=== PATIENT | male | born 1955 | race African-American/Black ===

== ENCOUNTER 2016-07-27 17:33 | Emergency (ER) | payer MEDICARE, MEDICAID ==
[~2016-07-27] VITALS: Ht 180.3 cm; Wt 91.0 kg
[~2016-07-27 17:33] MED LIST: AMLO10TA80 PO; ASPI-1035 PO; CARV6.2548 PO; DOCU-150 PO; GABA-531 PO; LOSA25TA12 PO; MEGE400O21 PO; NEPVIT PO; PIOG15TA23 PO; RAMI10CA19 PO; SEVE800T8 PO; SIMV20TA6 PO
[2016-07-27] MEDS ORDERED: HYDROCODONE/ACETAMINOPHEN 5/325MG TABLET PO ONE (18:30)
[2016-07-27 19:47] LABS: BASOPHILS % 3.1 % (0.0-2.0); DIFFERENTIAL COMMENT 0; EOSINOPHILS % 7.2 % (0.0-5.0); HEMATOCRIT. 32.5 % (42.0-52.0); HEMOGLOBIN. 10.4 g/dL (14.0-18.0); LYMPHOCYTES % 12.9 % (20.0-50.0); MEAN CORPUSCULAR HEMOGLOBIN 25.1 pg (28.0-32.0); MEAN CORPUSCULAR HGB CONC 32.1 g/dL (31.0-37.0); MEAN CORPUSCULAR VOLUME 78.4 fL (80.0-94.0); MEAN PLATELET VOLUME 7.5 fl (7.4-10.4); MONOCYTES % 10.6 % (2.0-8.0); NEUTROPHILS % 66.2 % (40.0-76.0); PLATELET 244 x1000/uL (130-400); RED BLOOD CELL COUNT 4.14 mill/uL (4.7-6.1); RED CELL DISTRIBUTION WIDTH 17.1 % (11.6-14.6); WHITE BLOOD COUNT 6.1 x1000/uL (4.5-11.0)
[2016-07-27 19:51] LABS: CHLORIDE 93 mEq/L (98-107); INDEX HEMOLYSI 1 (1-3); INDEX ICTERIC 1 (1-4); INDEX LIPEMIC 1 (1-3)
[2016-07-27 19:57] LABS: ALBUMIN 2.6 g/dL (3.4-5.0); ANION GAP 14; CALCIUM 8.4 mg/dL (8.5-10.1); CARBON DIOXIDE 31 mEq/L (21-32); UREA NITROGEN BLOOD 17 mg/dL (7-21)
[2016-07-27 19:58] LABS: ALANINE AMINOTRANSFERASE 13 IU/L (13-61)
[2016-07-27 20:00] LABS: eGFR 18 mL/min (>60)
[2016-07-27] MEDS ORDERED: MORPHINE SULFATE 10 MG/ML CPJ IM ONE (21:15)
[2016-07-28 17:57] VITALS: BP 157/88
== END 2016-07-28 19:04 | disposition home or self-care (01) ==
LOC: ER 17:34
DX: S22.32XA Fracture of one rib, left side, initial encounter for closed fracture (principal); Z79.899 Other long term (current) drug therapy; Z79.82 Long term (current) use of aspirin; E03.9 Hypothyroidism, unspecified; I12.0 Hypertensive chronic kidney disease with stage 5 chronic kidney disease or end stage renal disease; E11.22 Type 2 diabetes mellitus with diabetic chronic kidney disease; N18.6 End stage renal disease
CPT/HCPCS: 36415; 71010; 71250; 74176; 80053; 85025; 87040; 96372; 99285; J2270

== ENCOUNTER 2016-08-16 11:26 | Emergency (ER) | payer MEDICARE, MEDICAID ==
[~2016-08-16] VITALS: Ht 185.4 cm; Wt 76.0 kg
[2016-08-16] MEDS ORDERED: TRAMADOL 50MG TABLET PO ONE (12:30)
[2016-08-16 12:53] VITALS: BP 139/52
== END 2016-08-16 14:09 | disposition home or self-care (01) ==
LOC: ER 11:37
DX: S63.619A Unspecified sprain of unspecified finger, initial encounter (principal); N18.6 End stage renal disease; I12.0 Hypertensive chronic kidney disease with stage 5 chronic kidney disease or end stage renal disease; E11.9 Type 2 diabetes mellitus without complications; E03.9 Hypothyroidism, unspecified; Z99.2 Dependence on renal dialysis; Z79.82 Long term (current) use of aspirin; Z95.5 Presence of coronary angioplasty implant and graft; Z96.649 Presence of unspecified artificial hip joint
CPT/HCPCS: 29130; 73140; 82962; 99284

== ENCOUNTER 2016-10-22 20:40 | Observation (INO) | payer MEDICARE, MEDICAID ==
[~2016-10-22] VITALS: Ht 182.9 cm; Wt 76.7 kg
[~2016-10-22 20:40] MED LIST changes: -ASPI-1035 PO; +ASPI-1158 PO
[2016-10-22] MEDS ORDERED: SODIUM CHLORIDE 0.9% 1000ML BAG (SEPSIS BOLUS) IV ONE (21:15)
[2016-10-22 21:40] LABS: BASOPHILS % 0.9 % (0.0-2.0); EOSINOPHILS % 7.8 % (0.0-5.0); HEMOGLOBIN. 12.3 g/dL (14.0-18.0); LYMPHOCYTES % 12.4 % (20.0-50.0); MEAN CORPUSCULAR VOLUME 78.6 fL (80.0-94.0); MEAN PLATELET VOLUME 7.8 fl (7.4-10.4); MONOCYTES % 8.9 % (2.0-8.0); PLATELET 218 x1000/uL (130-400); RED BLOOD CELL COUNT 4.71 mill/uL (4.7-6.1); RED CELL DISTRIBUTION WIDTH 19.1 % (11.6-14.6)
[2016-10-22 21:45] LABS: INR 1.4
[2016-10-22 21:52] LABS: CARBON DIOXIDE 33 mEq/L (21-32); CHLORIDE 95 mEq/L (98-107)
[2016-10-22] MEDS ORDERED: VANCOMYCIN 1 G PREMIX 200 ML IV SCH (22:45)
[2016-10-22] MEDS ORDERED: PIPERACILLIN SODIUM/TAZOBACTAM 4.5 G in DEXT 5% WATER 100 ML IV SCH (22:45)
[2016-10-22] MEDS ORDERED: MORPHINE SULFATE 4 MG/ML CPJ (NOT FOR IM USE) IV ONE (23:00)
[2016-10-23] MEDS ORDERED: CLONIDINE 0.1MG TABLET PO SCH (07:15)
[2016-10-23 08:15] VITALS: BP 179/89
[2016-10-23] MEDS ORDERED: CLONIDINE 0.1MG TABLET PO PRN (09:15)
[2016-10-23] MEDS ORDERED: DEXTROSE 50% WATER 50ML SYRINGE IV PRN (09:15)
[2016-10-23] MEDS: MEGESTROL ACETATE 40MG TABLET PO SCH (11:15)
[2016-10-23] MEDS ORDERED: RAMIPRIL PO SCH (11:15)
[2016-10-23] MEDS ORDERED: PIOGLITAZONE 15MG TABLET PO SCH (11:15)
[2016-10-23 12:00] VITALS: BP 173/87
[2016-10-23] MEDS: LOSARTAN POTASSIUM 25 MG TABLET PO SCH (12:22)
[2016-10-23] MEDS: FOLIC ACID/VITAMIN B COMP W-C TABLET PO SCH (12:22)
[2016-10-23] MEDS: CARVEDILOL 6.25 MG TABLET PO SCH ×2 (12:22→20:22)
[2016-10-23] MEDS: AMLODIPINE 10MG TABLET PO SCH (12:22)
[2016-10-23] MEDS: DOCUSATE SODIUM 100MG CAPSULE PO SCH (12:22)
[2016-10-23] MEDS: ASPIRIN 81MG EC TABLET PO SCH (12:22)
[2016-10-23] MEDS: SEVELAMER CARBONATE 800 MG TABLET PO SCH ×2 (12:25→18:06)
[2016-10-23] MEDS: BLOOD SUGAR DIAGNOSTIC STRIP TEST SCH ×3 (12:40→20:18)
[2016-10-23] MEDS: INSULIN LISPRO 100 UNITS/ML SUBCUT SCH ×3 (13:10→20:18)
[2016-10-23 16:00] VITALS: BP 178/96
[2016-10-23] MEDS ORDERED: GABAPENTIN 300MG CAPSULE PO SCH (17:00)
[2016-10-23] MEDS: TRAMADOL 50MG TABLET PO PRN (18:05)
[2016-10-23 20:00] VITALS: BP 163/88
[2016-10-23] MEDS: ATORVASTATIN CALCIUM 10MG TABLET PO SCH (20:22)
[2016-10-23] MEDS: GABAPENTIN 300MG CAPSULE PO SCH (20:22)
[2016-10-24] VITALS (7 sets, daily range): BP systolic 135–163; BP diastolic 73–92
[2016-10-24 06:44] LABS: BASOPHILS % 2.5 % (0.0-2.0); EOSINOPHILS % 13.7 % (0.0-5.0); HEMATOCRIT. 30.9 % (42.0-52.0); LYMPHOCYTES % 25.3 % (20.0-50.0); MEAN CORPUSCULAR HEMOGLOBIN 25.9 pg (28.0-32.0); MEAN CORPUSCULAR VOLUME 80.1 fL (80.0-94.0); MEAN PLATELET VOLUME 7.9 fl (7.4-10.4); MONOCYTES % 12.3 % (2.0-8.0); NEUTROPHILS % 46.2 % (40.0-76.0); PLATELET 198 x1000/uL (130-400); RED BLOOD CELL COUNT 3.86 mill/uL (4.7-6.1); RED CELL DISTRIBUTION WIDTH 18.6 % (11.6-14.6)
[2016-10-24] MEDS: BLOOD SUGAR DIAGNOSTIC STRIP TEST SCH ×4 (06:44→20:47)
[2016-10-24] MEDS: SEVELAMER CARBONATE 800 MG TABLET PO SCH ×3 (08:10→16:59)
[2016-10-24] MEDS: INSULIN LISPRO 100 UNITS/ML SUBCUT SCH ×4 (08:10→20:46)
[2016-10-24] MEDS: TRAMADOL 50MG TABLET PO PRN (08:17)
[2016-10-24] MEDS: MEGESTROL ACETATE 40MG TABLET PO SCH (09:00)
[2016-10-24] MEDS ORDERED: HEPARIN SODIUM 1,000 UNIT/1ML VIAL IV NR (09:30)
[2016-10-24] MEDS: CARVEDILOL 6.25 MG TABLET PO SCH ×2 (11:52→20:43)
[2016-10-24] MEDS: AMLODIPINE 10MG TABLET PO SCH (11:52)
[2016-10-24] MEDS: LOSARTAN POTASSIUM 25 MG TABLET PO SCH (11:52)
[2016-10-24] MEDS: FOLIC ACID/VITAMIN B COMP W-C TABLET PO SCH (11:53)
[2016-10-24] MEDS: ASPIRIN 81MG EC TABLET PO SCH (11:53)
[2016-10-24] MEDS: DOCUSATE SODIUM 100MG CAPSULE PO SCH (11:53)
[2016-10-24] MEDS: ATORVASTATIN CALCIUM 10MG TABLET PO SCH (20:42)
[2016-10-24] MEDS: GABAPENTIN 300MG CAPSULE PO SCH (20:42)
== END 2016-10-24 21:25 | disposition home health service (06) ==
LOC: ER 21:05 → INTOOBSV 23:40 → 7WST 23:40 → ENRESERV 10-23 06:43
PROVIDERS: ADMIT Internal Medicine; ATTEND Internal Medicine
DX: E11.649 Type 2 diabetes mellitus with hypoglycemia without coma (principal); R65.10 Systemic inflammatory response syndrome (SIRS) of non-infectious origin without acute organ dysfunction; I13.2 Hypertensive heart and chronic kidney disease with heart failure and with stage 5 chronic kidney disease, or end stage renal disease; E11.22 Type 2 diabetes mellitus with diabetic chronic kidney disease; N18.6 End stage renal disease; R53.1 Weakness; G45.8 Other transient cerebral ischemic attacks and related syndromes; G93.40 Encephalopathy, unspecified; I27.2 Other secondary pulmonary hypertension; I50.9 Heart failure, unspecified; Z82.49 Family history of ischemic heart disease and other diseases of the circulatory system; Z83.3 Family history of diabetes mellitus; Z91.19 Patient's noncompliance with other medical treatment and regimen; Z96.649 Presence of unspecified artificial hip joint; Z99.2 Dependence on renal dialysis
CPT/HCPCS: 36415; 71010; 80048; 80053; 82962; 83605; 83735; 84100; 84443; 85025; 85610; 87040; 93005; 96361; 96365; 96367; 96375; 99291; A6261; G0378; J1644; J2270; J2543; J3370; J7030; 96366; J7060

== ENCOUNTER 2016-11-08 13:19 | Emergency (ER) | payer MEDICARE, MEDICAID ==
[~2016-11-08] VITALS: Ht 172.7 cm; Wt 68.0 kg
[2016-11-08] MEDS ORDERED: BACITRACIN ZINC 15GM TUBE TOP ONE (15:00)
[2016-11-08] MEDS ORDERED: OXYCODONE HCL/ACETAMINOPHEN 5/325MG TABLET PO ONE (15:00)
[2016-11-08 18:57] VITALS: BP 165/83
== END 2016-11-08 19:34 | disposition home or self-care (01) ==
LOC: ER 14:33
DX: S30.812A Abrasion of penis, initial encounter (principal); E11.9 Type 2 diabetes mellitus without complications; I12.0 Hypertensive chronic kidney disease with stage 5 chronic kidney disease or end stage renal disease; N18.6 End stage renal disease; X58.XXXA Exposure to other specified factors, initial encounter; Y93.89 Activity, other specified; Y92.89 Other specified places as the place of occurrence of the external cause; Y99.8 Other external cause status; Z99.2 Dependence on renal dialysis; Z96.649 Presence of unspecified artificial hip joint; Z79.82 Long term (current) use of aspirin
CPT/HCPCS: 99283

== ENCOUNTER 2016-12-31 14:04 | Inpatient (IN) | payer MEDICARE, MEDICAID ==
[~2016-12-31] VITALS: Ht 170.2 cm; Wt 64.9 kg
[~2016-12-31 14:04] MED LIST changes: -MEGE400O21 PO; +MEGE400O23 PO
[2016-12-31] MEDS ORDERED: ACETAMINOPHEN 325MG TABLET PO ONE (15:00)
[2016-12-31 16:59] LABS: HEMATOCRIT. 34.2 % (42.0-52.0); HEMOGLOBIN. 11.1 g/dL (14.0-18.0); MEAN CORPUSCULAR VOLUME 77.4 fL (80.0-94.0); MEAN PLATELET VOLUME 8.5 fl (7.4-10.4); PLATELET 172 x1000/uL (130-400); RED BLOOD CELL COUNT 4.42 mill/uL (4.7-6.1); RED CELL DISTRIBUTION WIDTH 19.4 % (11.6-14.6)
[2016-12-31 17:00] LABS: CARBON DIOXIDE 30 mEq/L (21-32); CHLORIDE 98 mEq/L (98-107); INR 1.4; PROTHROMBIN TIME 14.3 sec (9.4-11.6)
[2016-12-31 17:12] LABS: TROPONIN I 0.59 ng/mL (0.00-0.04)
[2016-12-31 17:29] LABS: PLATELET ESTIMATE NORMAL
[2016-12-31 18:25] LABS: AMMONIA 21 uMol/L (<32)
[2016-12-31] MEDS ORDERED: MORPHINE SULFATE 4 MG/ML CPJ (NOT FOR IM USE) IV ONE ×2 (19:00→19:04)
[2016-12-31 20:45] VITALS: BP 126/63
[2016-12-31 21:00] VITALS: BP 126/63
[2016-12-31] MEDS ORDERED: DOCUSATE SODIUM 100MG CAPSULE PO PRN (22:45)
[2016-12-31] MEDS ORDERED: CLONIDINE 0.1MG TABLET PO PRN (22:45)
[2016-12-31] MEDS ORDERED: ALBUTEROL (0.083%) 2.5MG/3ML NEB HHN PRN (22:45)
[2016-12-31] MEDS ORDERED: ACETAMINOPHEN 650MG/20.3ML UDC GT PRN (22:45)
[2017-01-01] VITALS: BP_SYST 100; BP_SYST 122; BP_DIAS 53; BP_DIAS 68
[2017-01-01] MEDS: SODIUM CHLORIDE 0.9% INJ 3ML FLUSH IVF SCH ×3 (01:49→21:08)
[2017-01-01] MEDS ORDERED: NITR0.4T49 SL (02:17)
[2017-01-01] MEDS ORDERED: BUSP5TAB3 PO (02:18)
[2017-01-01 04:00] VITALS: BP 135/57
[2017-01-01] MEDS: BLOOD SUGAR DIAGNOSTIC STRIP TEST SCH ×4 (06:39→21:04)
[2017-01-01] MEDS: DEXTROSE 50% WATER 50ML SYRINGE IV PRN (06:39)
[2017-01-01 06:59] LABS: PHOSPHORUS 2.2 mg/dL (2.5-4.9)
[2017-01-01 07:09] LABS: BG BASE EXCESS 2.2 mmol/L (-2.0-2.0); BG CARBOXYHEMOGLOBIN 0.9 % (0.5-1.5); BG HCO3 ACT 26.3 mmol/L (22.0-26.0); BG METHEMOGLOBIN 0.3 % (0.0-1.5); BG OXYHEMOGLOBIN 94.8 % (94.0-97.0); BG PCO2 39.3 mmHg (35.0-45.0); BG PH 7.444 (7.350-7.450); BG PO2 79.4 mmHg (75.0-100.0); BG SAMPLE SITE RIGHT BRACHIAL; BG TOTAL HEMOGLOBIN 11.3 g/dL (12.0-18.0); BG VENT MODE ROOM AIR
[2017-01-01 07:31] LABS: BASOPHILS % 1.2 % (0.0-2.0); EOSINOPHILS % 3.8 % (0.0-5.0); HEMATOCRIT. 34.1 % (42.0-52.0); LYMPHOCYTES % 7.2 % (20.0-50.0); MEAN CORPUSCULAR HEMOGLOBIN 25.1 pg (28.0-32.0); MEAN CORPUSCULAR VOLUME 77.9 fL (80.0-94.0); MEAN PLATELET VOLUME 8.5 fl (7.4-10.4); NEUTROPHILS % 80.8 % (40.0-76.0); PLATELET 196 x1000/uL (130-400); RED BLOOD CELL COUNT 4.38 mill/uL (4.7-6.1); RED CELL DISTRIBUTION WIDTH 19.7 % (11.6-14.6)
[2017-01-01 08:00] VITALS: BP 123/56
[2017-01-01] MEDS ORDERED: SEVELAMER CARBONATE 800 MG TABLET PO SCH (08:10)
[2017-01-01] MEDS: CARVEDILOL 6.25 MG TABLET PO SCH ×2 (09:00→16:17)
[2017-01-01] MEDS: INSULIN LISPRO 100 UNITS/ML SUBCUT SCH ×4 (09:18→21:00)
[2017-01-01] MEDS: GABAPENTIN 300MG CAPSULE PO SCH ×2 (09:40→16:16)
[2017-01-01] MEDS: LOSARTAN POTASSIUM 25 MG TABLET PO SCH (09:40)
[2017-01-01] MEDS: DOCUSATE SODIUM 100MG CAPSULE PO SCH ×2 (09:40→16:16)
[2017-01-01] MEDS: AMLODIPINE 10MG TABLET PO SCH (09:40)
[2017-01-01] MEDS: ASPIRIN 81MG EC TABLET PO SCH (09:40)
[2017-01-01] MEDS: ENOXAPARIN 30MG/0.3ML SYR SUBCUT SCH (09:41)
[2017-01-01] MEDS: FOLIC ACID/VITAMIN B COMP W-C TABLET PO SCH (09:41)
[2017-01-01] MEDS: TRAMADOL 50MG TABLET PO PRN ×2 (10:00→16:16)
[2017-01-01 12:00] VITALS: BP 137/55
[2017-01-01 16:00] VITALS: BP 140/54
[2017-01-01 20:00] VITALS: BP 158/57
[2017-01-01] MEDS: FAMOTIDINE 20MG TABLET PO SCH (21:00)
[2017-01-02] VITALS: BP 143/55
[2017-01-02 04:00] VITALS: BP 116/57
[2017-01-02] MEDS: SODIUM CHLORIDE 0.9% INJ 3ML FLUSH IVF SCH ×3 (06:00→22:00)
[2017-01-02] MEDS: BLOOD SUGAR DIAGNOSTIC STRIP TEST SCH ×4 (06:16→21:00)
[2017-01-02 06:50] LABS: BASOPHILS % 1.3 % (0.0-2.0); EOSINOPHILS % 4.4 % (0.0-5.0); HEMATOCRIT. 32.2 % (42.0-52.0); HEMOGLOBIN. 10.5 g/dL (14.0-18.0); LYMPHOCYTES % 7.1 % (20.0-50.0); MEAN CORPUSCULAR VOLUME 76.7 fL (80.0-94.0); MEAN PLATELET VOLUME 8.4 fl (7.4-10.4); MONOCYTES % 7.2 % (2.0-8.0); PLATELET 222 x1000/uL (130-400); RED CELL DISTRIBUTION WIDTH 19.7 % (11.6-14.6)
[2017-01-02] MEDS: INSULIN LISPRO 100 UNITS/ML SUBCUT SCH ×4 (07:54→21:00)
[2017-01-02 08:00] VITALS: BP 131/62
[2017-01-02 08:12] LABS: PHOSPHORUS 3.9 mg/dL (2.5-4.9)
[2017-01-02 08:14] LABS: PREALBUMIN 4.6 mg/dL (20.0-40.0)
[2017-01-02] MEDS: GABAPENTIN 300MG CAPSULE PO SCH ×2 (09:00→17:22)
[2017-01-02] MEDS: AMLODIPINE 10MG TABLET PO SCH (09:00)
[2017-01-02] MEDS: LOSARTAN POTASSIUM 25 MG TABLET PO SCH (09:00)
[2017-01-02] MEDS: ENOXAPARIN 30MG/0.3ML SYR SUBCUT SCH (09:00)
[2017-01-02] MEDS: FOLIC ACID/VITAMIN B COMP W-C TABLET PO SCH (09:00)
[2017-01-02] MEDS: CARVEDILOL 6.25 MG TABLET PO SCH ×2 (09:00→17:22)
[2017-01-02] MEDS: ASPIRIN 81MG EC TABLET PO SCH (09:00)
[2017-01-02] MEDS: DOCUSATE SODIUM 100MG CAPSULE PO SCH ×2 (09:00→17:22)
[2017-01-02 12:00] VITALS: BP 126/58
[2017-01-02] MEDS: DEXTROSE 50% WATER 50ML SYRINGE IV PRN (12:33)
[2017-01-02 16:00] VITALS: BP 144/66
[2017-01-02 20:12] VITALS: BP 134/66
[2017-01-02] MEDS: FAMOTIDINE 20MG TABLET PO SCH (21:00)
[2017-01-02] MEDS: TRAMADOL 50MG TABLET PO PRN (23:15)
[2017-01-03] VITALS (7 sets, daily range): BP systolic 122–156; BP diastolic 61–78
[2017-01-03] MEDS: SODIUM CHLORIDE 0.9% INJ 3ML FLUSH IVF SCH ×2 (05:19→14:00)
[2017-01-03] MEDS: BLOOD SUGAR DIAGNOSTIC STRIP TEST SCH ×4 (05:54→21:40)
[2017-01-03 07:05] LABS: BASOPHILS % 1.4 % (0.0-2.0); EOSINOPHILS % 3.8 % (0.0-5.0); HEMATOCRIT. 34.5 % (42.0-52.0); HEMOGLOBIN. 11.3 g/dL (14.0-18.0); LYMPHOCYTES % 7.1 % (20.0-50.0); MEAN CORPUSCULAR HEMOGLOBIN 25.3 pg (28.0-32.0); MEAN CORPUSCULAR VOLUME 77.5 fL (80.0-94.0); MEAN PLATELET VOLUME 8.3 fl (7.4-10.4); MONOCYTES % 7.7 % (2.0-8.0); PLATELET 248 x1000/uL (130-400); RED BLOOD CELL COUNT 4.45 mill/uL (4.7-6.1); RED CELL DISTRIBUTION WIDTH 19.9 % (11.6-14.6)
[2017-01-03 08:08] LABS: PHOSPHORUS 2.8 mg/dL (2.5-4.9)
[2017-01-03] MEDS: ASPIRIN 81MG EC TABLET PO SCH (09:03)
[2017-01-03] MEDS: CARVEDILOL 6.25 MG TABLET PO SCH ×2 (09:04→18:08)
[2017-01-03] MEDS: FOLIC ACID/VITAMIN B COMP W-C TABLET PO SCH (09:05)
[2017-01-03] MEDS: LOSARTAN POTASSIUM 25 MG TABLET PO SCH (09:05)
[2017-01-03] MEDS: GABAPENTIN 300MG CAPSULE PO SCH ×2 (09:05→18:07)
[2017-01-03] MEDS: AMLODIPINE 10MG TABLET PO SCH (09:05)
[2017-01-03] MEDS: DOCUSATE SODIUM 100MG CAPSULE PO SCH ×2 (09:05→18:08)
[2017-01-03] MEDS: ENOXAPARIN 30MG/0.3ML SYR SUBCUT SCH (09:06)
[2017-01-03] MEDS: INSULIN LISPRO 100 UNITS/ML SUBCUT SCH ×4 (09:16→20:59)
[2017-01-03] MEDS: FAMOTIDINE 20MG TABLET PO SCH (20:33)
[2017-01-03] MEDS: TRAMADOL 50MG TABLET PO PRN (20:35)
== END 2017-01-03 22:35 | DRG 70 ==
LOC: ER 14:04 → OBSVTOIN 17:33 → 7WST 17:33 → INTOOBSV 17:33 → EDBEDREQ 17:36 → EDBEDREQTM 17:36 → ENRESERV 19:34
PROVIDERS: ADMIT Internal Medicine; ATTEND Internal Medicine
PROC: 5A1D60Z (ICD-10-PCS; principal; 2016-12-31)
DX: G93.40 Encephalopathy, unspecified (principal); N18.6 End stage renal disease; I13.2 Hypertensive heart and chronic kidney disease with heart failure and with stage 5 chronic kidney disease, or end stage renal disease; R64 Cachexia; E11.52 Type 2 diabetes mellitus with diabetic peripheral angiopathy with gangrene; I27.2 Other secondary pulmonary hypertension; E11.22 Type 2 diabetes mellitus with diabetic chronic kidney disease; N48.29 Other inflammatory disorders of penis; N48.5 Ulcer of penis; D64.9 Anemia, unspecified; E78.5 Hyperlipidemia, unspecified; G89.29 Other chronic pain; I50.9 Heart failure, unspecified; K21.9 Gastro-esophageal reflux disease without esophagitis; R29.6 Repeated falls; Z82.49 Family history of ischemic heart disease and other diseases of the circulatory system; Z87.891 Personal history of nicotine dependence; Z91.81 History of falling; Z99.2 Dependence on renal dialysis; Z79.82 Long term (current) use of aspirin; Z79.899 Other long term (current) drug therapy; Z91.19 Patient's noncompliance with other medical treatment and regimen; Z68.22 Body mass index [BMI] 22.0-22.9, adult
CPT/HCPCS: 36415; 36600; 70450; 71010; 73552; 73560; 73590; 80048; 80053; 80307; 82140; 82375; 82805; 82962; 83036; 83735; 83880; 84100; 84134; 84484; 85025; 85610; 85651; 87040; 93005; 93970; 96374; 99285; J1650; J1815; J2270